=== PATIENT | female | born 1950 | race Caucasian/White ===

== ENCOUNTER 2016-12-07 11:40 | Day surgery (SDC) | payer OTHER ==
[~2016-12-07] VITALS: Ht 170.2 cm; Wt 50.0 kg
[~2016-12-07 11:40] MED LIST: CHOL100045 PO; IRON1TAB31 PO; LORA0.5T PO; Lactated Ringer's 1,000 ML IV ONE; NOMED; ZOLP5TAB6 PO
[2016-12-07] MEDS ORDERED: Propofol 10,000 mCg/mL 20 mL Inj ONE (11:41)
[2016-12-07 11:59] VITALS: BP 127/74; PULSE 70; RESP 12; O2SAT 99
[2016-12-07] MEDS ORDERED: Lactated Ringer's 1,000 ML IV SCH (12:49)
--- NOTE | 2016-12-07 12:49 | PCM.HPANE ---
Patient Data Surgeon Admitting Provider: Attending Provider:Dell Harrison MD Primary Care Physician:Lane Alcala MD Other Provider:Margaret Amadoringham Anesthesia Reason for Visit Iron Deficiency Anemia Ht/WT & BMI Height (Feet): 5 Height (Inches): 7 Weight (Kilograms): 50 Body Mass Index 17.00 Allergies Coded Allergies: No Known Allergies (Verified , 12/07/16) Past Anesthesia History Anesthesia History: Denies:: Abnormal Airway, Anesthesia Reactions, Difficult Intubation, Fam Anesthesia Reaction, Fam Malignant Hypertherm, Malignant Hyperthermia Diabetes History Hx Diabetes?: No MRSA MRSA: No Medications Reported Medications Zolpidem 5 Mg Tablet5 Mg PO HS PRN For Insomnia Ref 0 12/05/16 Cholecalciferol (Vitamin D3) (Vitamin D)1,000 Unit Capsule1,000 Unit PO DAILY # 1 BOTTLE Ref 0 12/05/16 Lorazepam 0.5 Mg Tablet0.5 Mg PO TID PRN For Anxiety Ref 0 12/05/16 Ferrous Fumarate/Ascorbic Acid (Bebe-Sequels 65-25 mg Caplet)200 Mg (65 Mg Iron )-25 Mg Tablet.er1 Each PO 12/05/16 Discontinued Reported Medications No Historical Medication Ea Ref 0 06/14/09 History HEENT History: Denies:: Abnormal Airway Difficult Intubation Dysphagia Hearing Problem Hx of Heart Problems?: No Hx of Respiratory Problem?: Yes Respiratory History: Positive for:: Cough (GETTING OVER FLU, SLIGHT COUGHING AND PHLEM.) Denies:: Asthma COPD Hemoptysis Pneumonia Tuberculosis Neurological History: Denies:: CVA Hx of GI Problems?: Yes Gastrointestinal History: Denies:: Cirrhosis Diverticulitis Gall Bladder Disease Gastroesphageal Reflux Hiatal Hernia Liver Disease Rectal Bleeding Female Hx: Denies:: Currently Musculoskeletal History: Denies:: Fibromyalgia Joint Replacement Psycho Social History: Positive for:: Anxiety (ONLY WITH FLYING) Denies:: Hx Depression Hx Surgeries?: Yes (C SECTION IN 1980, MALIGMANT MELANOMA 2009) Hx Any Other Health Problems?: Yes Hx Diabetes: No Hx Alcohol Use: Yes (OCCASIONAL) Stop/Bang Treated for Sleep Apnea?: No Do You Have a CPAP Machine?: No S-Snoring: Do You Snore Loudly: No T-Tired: feel tired, fatigued: No O-Obsered: Observed not breath: No P-Blood Pressure: treated: No B- Body Mass Index > 35 kg/m2: No A- Age over 50: Yes N- Neck Large Circumference: No G- Gender Male: No DERECK Total Score: 1 DERECK Risk Assessment: Low Risk, <3 Yes Risk Assessment Category Category 1A: Patient has history of documented sleep apnea, and HAS NOT received any narcotic, sedative or anesthesia administration during this stay. Category 1B: Patient has history of documented sleep apnea, and HAS received any narcotic , sedative or anesthesia administration during this stay Category 2: Patient has SUSPECTED Obstructive Sleep Apnea, and HAS received any narcotic , sedative or anesthesia administration during this stay. Category 3: Patient has SUSPECTED Obstructive Sleep Apnea and HAS NOT received narcotic, sedative or anesthesia administration during this stay. Category 4: Outpatient in Procedural Areas with known sleep apnea or who screen positive for High Risk via the STOP/BANG questionnaire. Exam Exam Vital Signs Vital Signs Date Time Temp Pulse Resp B/P Pulse Ox O2 Delivery O2 Flow Rate FiO2 12/07/16 11:59 36.9 70 12 127/74 99 Room Air General Appearance: Oriented X3 HEENT/AIRWAY: MP 1 Lungs: Normal Air Movement Heart: Regular Rate/Rhythm Plan Impression Patient chart reviewed, patient interviewed and anesthestic plan with risks, benefits, and alternatives discussed, and informed consent obtained. ASA Physical Status: ASA2 Mod Systemic Disease Anesthetic Plan: MAC Bene/Risks/Altern/Consents: Yes HP Complete Prior to Induction: Yes Aguila Ames MD Dec 07, 2016 12:49
[2016-12-07] MEDS ORDERED: Ondansetron 2 mg/mL 2 mL Inj IVPUSH PRN (12:50)
[2016-12-07] MEDS ORDERED: MetoCLOpramide 5 mg/mL 2 mL Inj IVPUSH PRN (12:50)
[2016-12-07 13:34] VITALS: BP 95/61; PULSE 72; RESP 16; O2SAT 98
--- NOTE | 2016-12-07 13:40 | PCM.ANEP1 ---
Post Anesthesia Phase 1 PACU Phase 1 Assessment Vital Signs Vital Signs Date Time Temp Pulse Resp B/P Pulse Ox O2 Delivery O2 Flow Rate FiO2 12/07/16 13:34 72 16 95/61 98 Room Air 12/07/16 11:59 36.9 70 12 127/74 99 Room Air Anesthetic Administered: MAC Level of Alertness: Awake, talking Pain: No Nausea or Vomiting: No Oxygen Delivery: Room Air Lungs: Normal Air Movement Aguila Ames MD Dec 07, 2016 13:40
--- NOTE | 2016-12-07 13:40 | PCM.ANEP2 ---
Post Anesthesia Evaluation ASA/CMS Post Anesthesia VS in Patient's Normal Range?: Yes Resp Stable; Airway Patent?: Yes CV Function & Hydration Stable: Yes Mental Status Recovered?: Yes Pain control Satisfactory?: Yes N/V Control Satisfactory?: Yes Aguila Ames MD Dec 07, 2016 13:40
[2016-12-07 13:43] VITALS: BP 104/62; PULSE 77; RESP 16; O2SAT 97
--- NOTE | 2016-12-07 13:45 | ENDO ---
[address] [address] ENDOSCOPY PROCEDURE PATIENT: ULYSSES TOLEDO : 1950 MR#: [id number] ADMIT: 12/07/2016 JOB ID: [id number] DATE: 12/07/2016 TYPE OF OPERATION: 1. Esophagogastroduodenoscopy with biopsy. 2. Colonoscopy. PREOPERATIVE DIAGNOSIS(ES): Iron deficiency anemia. POSTOPERATIVE DIAGNOSIS(ES): 1. Mild nonerosive gastritis status post biopsy. 2. Normal colonoscopy. ANESTHESIA: Monitored anesthesia care. COMPLICATION: None. BLOOD LOSS: Minimal. DESCRIPTION OF PROCEDURE: After the risks and benefits were explained to the patient, informed consent was obtained. After anesthesia administered, an upper endoscope was then inserted into mouth and intubated into the esophagus, stomach, second portion of duodenum. Mucosa carefully examined. After procedure was done, the scope was withdrawn and the procedure terminated. Colonoscope was then inserted per rectum to the cecum. Mucosa carefully examined. Prep of the patient was excellent. After the procedure was done, the scope was withdrawn and the procedure terminated. FINDINGS: Upon inspection of the esophagus, the esophagus was normal without masses, ulcers or lesions. Z-line located 40 cm from incisors. Upon entering the stomach, there was mild nonerosive gastritis seen. No masses, ulcers or lesions were seen. Retroflexion was normal. Duodenal bulb, first portion normal. Biopsies taken from the duodenum and antrum and body of the stomach. Upon inspection of the anus, no masses, hemorrhoids, ulcers or fissures that were seen. Throughout the entire examination, there are no polyps, masses or lesions. Retroflexion normal. IMPRESSION: 1. Normal colonoscopy. 2. Mild nonerosive gastritis. RECOMMENDATION: 1. Await pathology results. 2. Followup in GI clinic as needed.
[2016-12-07 13:46] VITALS: BP 96/78; PULSE 65; RESP 16; O2SAT 95
--- NOTE | 2016-12-11 14:31 | PATH ---
SURGICAL PATHOLOGY Attending Physician:Dell Harrison MD CASE STATUS: Signed Out PATIENT NAME: ULYSSES TOLEDO PID: [id number] : 1950 DATE COLLECTED:12/07/2016 00:00 SPECIMEN: 1: Duodenum, Biopsy 2: Stomach, Antrum, Biopsy 3: Gastric, Biopsy CLINICAL HISTORY: 1).DUODENUM BIOPSY 2).ANTRUM BIOPSY 3).BODY BIOPSY FINAL DIAGNOSIS: 1.DUODENUM BIOPSY: DUODENAL MUCOSA WITH NO DIAGNOSTIC ALTERATIONS. Negative for inflammation, sprue, dysplasia, and malignancy. 2.ANTRUM BIOPSY: ANTRAL MUCOSA WITH NO DIAGNOSTIC ALTERATIONS. Negative for Helicobacter organisms. Negative for intestinal metaplasia. Negative for dysplasia and malignancy. 3.BODY BIOPSY: BODY-TYPE MUCOSA WITH NO DIAGNOSTIC ALTERATIONS. Negative for Helicobacter organisms. Negative for intestinal metaplasia. Negative for dysplasia and malignancy. ICD10 code R10.9 GROSS DESCRIPTION: Received are three formalin-filled containers, each labeled with the patient' s name. 1. Received in formalin, labeled with the patient' s name and "duodenal biopsy", are two fragments of alanis, soft tissue ranging in size from 0.2 x 0.2 x 0.1 cm to 0.2 x 0.2 x 0.2 cm. All fragments are totally submitted in cassette 1A. 2. Received in formalin, labeled with the patient' s name and "antrum biopsy", are two fragments of alanis, soft tissue ranging in size from 0.2 x 0.1 x 0.1 cm to 02 x 0.2 x 0.1 cm. All fragments are totally submitted in cassette 2A. 3. Received in formalin, labeled with the patient' s name and "body biopsy", is one fragment of alanis, soft tissue measuring 0.3 x 0.2 x 0.2 cm. The fragment is totally submitted in cassette 3A. ([id number]) MICRO DESCRIPTION: See diagnosis. ICD-9 CODES: CPT CODES: 1: 01686 2: 43141 3: 05711 Electronically Signed Out Ebonie Ayala MD [facility], [place] [address] Technical component performed at [facility], [facility] [address], [address]
== END 2016-12-07 23:59 | disposition home or self-care (01) ==
LOC: END 11:40
PROVIDERS: ATTEND Internal Medicine Gastroenterology
DX: D50.9 Iron deficiency anemia, unspecified (principal); K29.50 Unspecified chronic gastritis without bleeding; F41.9 Anxiety disorder, unspecified; M89.8X9 Other specified disorders of bone, unspecified site
CPT/HCPCS: 43239; 45378; J7120